=== PATIENT | male | born 1965 | race African-American/Black ===

== ENCOUNTER 2023-03-10 23:13 | Emergency (ER) | payer OTHER ==
[~2023-03-10] VITALS: Ht 162.6 cm; Wt 97.4 kg
[2023-03-10 23:36] VITALS: BP 119/78
== END 2023-03-11 01:00 | disposition left against medical advice (07) ==
LOC: ER 23:13
DX: Z53.21 Procedure and treatment not carried out due to patient leaving prior to being seen by health care provider (principal)
CPT/HCPCS: 99281